=== PATIENT | female | born 1985 | race Caucasian/White ===

== ENCOUNTER 2020-05-22 12:02 | Emergency (ER) | payer BC ==
[~2020-05-22 12:02] MED LIST: GLYCOPYRROLATE1 MG PO; IBUPROFEN600 MG PO; NORCO 5-325 TA1 EACH PO; PRENATAL COMPL1 EACH PO; SYNTHROID88 MCG PO
[2020-05-22 15:52] LABS: HEMOGLOBIN 11.4 gm/dl (12.3-15.3); RED BLOOD COUNT 4.11 M/UL (4.00-5.10); WHITE BLOOD COUNT 9.5 K/UL (4.5-11.0)
[2020-05-22 16:15] LABS: BUN/CREATININE RATIO 16 (0-10)
[2020-05-22] MEDS ORDERED: NORCO 5-325 TA1 EACH PO (18:12)
[2020-05-22] MEDS ORDERED: PHENERGAN 25 MG25 M1 PO (18:27)
== END 2020-05-22 18:30 | disposition home or self-care (01) ==
LOC: ER1 12:02
PROVIDERS: Emergency Medicine
DX: N99.820 Postprocedural hemorrhage of a genitourinary system organ or structure following a genitourinary system procedure (principal); R10.2 Pelvic and perineal pain; Y83.8 Other surgical procedures as the cause of abnormal reaction of the patient, or of later complication, without mention of misadventure at the time of the procedure; Z98.890 Other specified postprocedural states
CPT/HCPCS: 76830; 80053; 84702; 85025; 99284

== ENCOUNTER → 2020-09-05 | Outpatient (CLI) | payer BC ==
[~2020-09-05] MED LIST changes: +PHENERGAN 25 MG25 M1 PO
== END ==
LOC: KOH-I 13:38
DX: E03.9 Hypothyroidism, unspecified (principal); E04.1 Nontoxic single thyroid nodule
CPT/HCPCS: 76536

== ENCOUNTER 2021-04-24 11:13 | Emergency (ER) | payer BC ==
[~2021-04-24] VITALS: Ht 160 cm; Wt 59.0 kg
[2021-04-24 12:52] LABS: HEMOGLOBIN 13.8 gm/dl (12.3-15.3); RED BLOOD COUNT 4.92 M/UL (4.00-5.10); WHITE BLOOD COUNT 4.4 K/UL (4.5-11.0)
[2021-04-24 13:14] LABS: BUN/CREATININE RATIO 12 (0-10)
[2021-04-24] MEDS ORDERED: OMNICEF 300 MG300 MG PO (14:05)
== END 2021-04-24 16:45 | disposition home or self-care (01) ==
LOC: ER1 11:13
PROVIDERS: Emergency Medicine
DX: U07.1 COVID-19 (principal); Z23 Encounter for immunization; Z86.2 Personal history of diseases of the blood and blood-forming organs and certain disorders involving the immune mechanism
CPT/HCPCS: 71045; 80053; 81001; 82550; 82553; 83874; 84484; 84703; 85025; 87077; 87086; 87186; 99284; M0245

== ENCOUNTER → 2021-10-16 | Outpatient (CLI) | payer BC ==
[~2021-10-16] MED LIST changes: +OMNICEF 300 MG300 MG PO
== END ==
LOC: LAB 05:59
DX: E03.9 Hypothyroidism, unspecified (principal)
CPT/HCPCS: 36415; 84439; 84443